=== PATIENT | male | born 1945 | race Caucasian/White ===

== ENCOUNTER 2018-11-26 04:53 | Emergency (ER) | payer BC, MEDICARE ==
--- NOTE | 2018-11-26 05:55 | RADIOLOGY REPORT (SQ) ---
EXAM DESCRIPTION: XR CHEST 2 VIEWS COMPLETED DATE/TME: 11/26/2018 05:24 CLINICAL HISTORY: 73 years, Male, cough COMPARISON: None. NUMBER OF VIEWS: 2 TECHNIQUE: Frontal and lateral views of the chest LIMITATIONS: None. FINDINGS: Cardiomegaly with atheromatous change thoracic aorta. COPD. Minor scarring right lung base. Lungs are otherwise clear. No pneumothorax IMPRESSION: COPD. No acute cardiopulmonary process copyright 2010 [employer]- All Rights Reserved
--- NOTE | 2018-11-26 06:11 | ER Document Report ---
ED General - General Chief Complaint: Productive Cough Stated Complaint: DIFFICULTY BREATHING Time Seen by Provider: 11/26/18 05:23 Primary Care Provider: BRENDNO GOULD DO [NO LOCAL MD] - Follow up in 3-5 days Notes: Patient is a 73-year-old male who presents to the emergency department with a chief complaint of cough.He states that he has had his symptoms for the past 4 days. Admits to yellow coughing up yellow sputum. Denies hemoptysis. He states that he has some shortness of breath and congestion. States that he feels like he has gotten worse over the last 24 hours. He was seen by Zhou hagen afluisana days ago and was given an albuterol inhaler. He has been using it periodically when needed. Patient's past medical history includes arthritis. He only takes glucosamine/chondroitin for medication. Denies any other past medical history. Denies any chest pain, abdominal pain, nausea, vomiting, or any other symptoms. - Related Data Allergies/Adverse Reactions: No Known Allergies Allergy (Verified 03/17/14 11:13) Past Medical History - Social History Smoking Status: Unknown if Ever Smoked Family History: Reviewed & Not Pertinent Patient has suicidal ideation: No Patient has homicidal ideation: No - Past Medical History Cardiac Medical History: Denies: Hx Atrial Fibrillation, Hx Coronary Artery Disease, Hx DVT, Hx Heart Attack, Hx Hypercholesterolemia, Hx Hypertension, Hx Peripheral Vascular Disease Pulmonary Medical History: Reports: Hx COPD Renal/ Medical History: Denies: Hx Peritoneal Dialysis Past Surgical History: Reports: Hx Abdominal Surgery - Hernia repair Review of Systems - Review of Systems Notes: REVIEW OF SYSTEMS: CONSTITUTIONAL : Denies recent illness. Denies recent unintentional weight loss. Denies fever, chills, or sweats. EENT: Denies eye, ear, throat, or mouth pain, discharge, or symptoms. Denies nasal or sinus congestion. CARDIOVASCULAR: Denies chest pain. RESPIRATORY: See HPI GASTROINTESTINAL: Denies nausea, vomiting, and diarrhea. Denies abdominal pain. Denies constipation. GENITOURINARY: Denies difficulty urinating, burning, blood in urine, urgency or frequency. MUSCULOSKELETAL: Denies neck and back pain. Denies joint pain or swelling. SKIN: Denies rash, itchiness, or lesions HEMATOLOGIC : Denies easy bruising or bleeding. LYMPHATIC: Denies swollen, painful, enlarged glands. NEUROLOGICAL: Denies no numbness or tingling denies weakness. Denies headache. Denies altered mental status. Denies alteration in speech. PSYCHIATRIC: Denies stress, anxiety, alteration in sleep patterns, or depression. All other systems reviewed and negative. Physical Exam - Vital signs Vitals: Temp Pulse Resp BP Pulse Ox 97.9 F 72 21 H 153/77 H 94 11/26/18 04:54 11/26/18 04:54 11/26/18 04:54 11/26/18 04:54 11/26/18 04:54 - Notes Notes: PHYSICAL EXAMINATION: GENERAL: Appears well, healthy, well-nourished, no acute distress. HEAD: Normocephalic, atraumatic. EYES: PERRL, conjunctiva normal, all extraocular movements intact, sclera nonicteric ENT: Moist mucous membranes. NECK: Supple, no noticeable swelling, redness, rash. Normal range of motion. LUNGS: Equal breath sounds bilaterally and clear to auscultation. No wheezes rales or rhonchi. CARDIOVASCULAR: S1-S2, regular rate, regular rhythm. Radial pulses 2+, normal. ABDOMEN: Normoactive bowel sounds. Soft, nontender, no guarding, no rebound tenderness, and no masses palpated. EXTREMITIES: Normal strength and range of motion, no pitting or edema. No cyanosis. NEUROLOGICAL: Moves all extremities upon command. Strength 5/5 in all extremities. PSYCH: Normal mood, normal affect. SKIN: Warm, dry. No rash, lesions, ulcerations noted. Normal skin turgor. Course - Re-evaluation Re-evalutation: 11/26/18 Patient's chest x-ray is negative for any acute findings. There is COPD noted on his x-ray. No pneumonia noted. His lung sounds are clear. I have instructed him to continue his albuterol inhaler provided by [facility] every 4-6 hours as needed. He will also be started on prednisone for the next 5 days. He will follow-up with his primary care provider. He is in agreement with this plan. Return precautions were given. Verbal discharge instructions were given to the patient. They verbalized understanding. They are stable for discharge. - Vital Signs Vital signs: Temp Pulse Resp BP Pulse Ox 98.3 F 57 L 20 157/76 H 95 11/26/18 06:31 11/26/18 06:31 11/26/18 06:31 11/26/18 06:31 11/26/18 06:31 Discharge - Discharge Clinical Impression: Cough, Difficulty breathing Condition: Stable Disposition: HOME, SELF-CARE Additional Instructions: You are seen today in the emergency department for a cough and difficulty breathing. Your chest x-ray was normal. Please continue to take your inhaler every 4-6 hours as needed for shortness of breath. You are being started on steroids. Follow-up with your primary care provider in the next 3 to 5 days. If you have worsening symptoms, have difficulty breathing, shortness of breath, or have any symptoms that are worrisome to you, please return to the emergency department. Prescriptions: Prednisone [Deltasone 20 mg Tablet] 3 tab PO DAILY 5 Days #15 tablet Referrals: BRENDON GOULD DO [NO LOCAL MD] - Follow up in 3-5 days
[2018-11-26 06:28] VITALS: BP 157/76
== END 2018-11-26 06:20 | disposition home or self-care (01) ==
LOC: ER 04:53
DX: J44.9 Chronic obstructive pulmonary disease, unspecified (principal); R05 Cough; R06.02 Shortness of breath; Z79.899 Other long term (current) drug therapy
CPT/HCPCS: 71046; 99283

== ENCOUNTER 2020-03-04 19:05 | Emergency (ER) | payer OTHER, MEDICARE ==
--- NOTE | 2020-03-04 19:29 | ER Document Report ---
ED Medical Screen (RME) - General Chief Complaint: Chest Tightness Stated Complaint: CHEST TIGHTNESS Time Seen by Provider: 03/04/20 19:23 Primary Care Provider: MELANIE BUENROSTRO MD [Primary Care Provider] - Follow up as needed - HPI Notes: 03/04/20 19:35 75-year-old male presents to the emergency room for chest tightness that started yesterday afternoon. Patient reports that he feels like he only has chest pain with movement and with taking deep breaths in. Patient states he is having some epigastric tenderness that started yesterday afternoon as well. Patient reports he has been lifting his very old dog more so he is not sure if that he is having musculoskeletal pain or if he is having an actual heart attack. Patient denies any cardiovascular history, states he only has arthritis in his joints and a "like case of COPD". Was a former smoker. Patient reports his father did have an RI, unsure of his mother's history. Patient reports he is able to reproduce his pain in his chest. Denies any trauma or falls. Patient states that it is more of chest tightness than it is chest pain and that is where his concern was. I have greeted and performed a rapid initial assessment of this patient. A comprehensive ED assessment and evaluation of the patient, analysis of test results and completion of the medical decision making process will be conducted by additional ED providers. PHYSICAL EXAMINATION: GENERAL: Well-appearing, well-nourished and in no acute distress. HEAD: Atraumatic, normocephalic. EYES: Pupils equal round extraocular movements intact, conjunctiva are normal. NECK: Normal range of motion CV: s1, s2 regular LUNGS: No respiratory distress abd: epigastric abd pain on palpation - Related Data Allergies/Adverse Reactions: No Known Allergies Allergy (Verified 03/17/14 11:13) Past Medical History - Past Medical History Cardiac Medical History: Denies: Hx Atrial Fibrillation, Hx Coronary Artery Disease, Hx DVT, Hx Heart Attack, Hx Hypercholesterolemia, Hx Hypertension, Hx Peripheral Vascular Disease Pulmonary Medical History: Reports: Hx COPD Renal/ Medical History: Denies: Hx Peritoneal Dialysis Past Surgical History: Reports: Hx Abdominal Surgery - Hernia repair Physical Exam - Vital signs Vitals: Temp Pulse Resp BP Pulse Ox 97.7 F 62 18 144/77 H 95 03/04/20 19:17 03/04/20 19:17 03/04/20 19:17 03/04/20 19:17 03/04/20 19:17 Course - Vital Signs Vital signs: Temp Pulse Resp BP Pulse Ox 97.7 F 62 18 144/77 H 95 03/04/20 19:17 03/04/20 19:17 03/04/20 19:17 03/04/20 19:17 03/04/20 19:17 Doctor's Discharge - Discharge Referrals: MELANIE BUENROSTRO MD [Primary Care Provider] - Follow up as needed
[2020-03-04] MEDS ORDERED: METOCLOPRAMIDE HCL ORAL SOLN 10 MG/10 ML UDCUP PO ONE (19:37)
[2020-03-04] MEDS ORDERED: LIDOCAINE 2% VISCOUS SOLN 15 ML UDCUP PO ONE (19:37)
[2020-03-04] MEDS ORDERED: MAG HYDROX/AL HYDROX/SIMETH SUSP 30 ML UDCUP PO ONE (19:37)
[2020-03-04 20:14] LABS: ABSOLUTE EOSINOPHILS # (AUTO) 0.1 10^3/uL (0.0-0.6); ABSOLUTE LYMPHOCYTES (AUTO) 0.8 10^3/uL (0.5-4.7); ABSOLUTE MONOCYTES (AUTO) 0.8 10^3/uL (0.1-1.4); ABSOLUTE NEUT (AUTO) 5.7 10^3/uL (1.7-8.2); BASOPHILS % (AUTO) 0.6 % (0-2); EOSINOPHILS % (AUTO) 1.3 % (0-6); HEMATOCRIT 44.4 % (37.9-51.0); HEMOGLOBIN 14.7 g/dL (13.5-17.0); LYMPHOCYTES % (AUTO) 10.3 % (13-45); MEAN CORPUSCULAR HEMOGLOBIN 28.6 pg (27.0-33.4); MEAN CORPUSCULAR HGB CONC 33.1 g/dL (32.0-36.0); MEAN CORPUSCULAR VOLUME 87 fl (80-97); MONOCYTES % (AUTO) 10.8 % (3-13); PLATELET COUNT 224 10^3/uL (150-450); RED BLOOD COUNT 5.13 10^6/uL (4.35-5.55); TOTAL CELLS COUNTED % (AUTO) 100 %; WHITE BLOOD COUNT 7.4 10^3/uL (4.0-10.5)
--- NOTE | 2020-03-04 20:15 | RADIOLOGY REPORT (SQ) ---
CLINICAL INDICATION: chest tightness . TECHNIQUE: PA and lateral views were obtained of the chest COMPARISON: November 26, 2018. FINDINGS: The cardiomediastinal silhouette is prominent but stable. Tortuous thoracic aorta.. The lungs are grossly clear. No evidence of effusion or pneumothorax. Chronic parenchymal lung change. Osteoarthritis. . IMPRESSION: No evidence of active intrathoracic disease .
[2020-03-04 20:32] LABS: ALKALINE PHOSPHATASE 72 U/L (38-126); ANION GAP 6 (5-19); ASPARTATE AMINO TRANSFERASE 22 U/L (17-59); BILIRUBIN,DIRECT 0.3 mg/dL (0.0-0.4); BLOOD UREA NITROGEN 17 mg/dL (7-20); CARBON DIOXIDE 26 mmol/L (22-30); CHLORIDE 105 mmol/L (98-107); CREATINE KINASE 126 U/L (55-170); GLUCOSE 85 mg/dL (75-110); POTASSIUM 4.2 mmol/L (3.6-5.0); TOTAL PROTEIN 6.6 g/dL (6.3-8.2)
[2020-03-04 20:44] LABS: CREATINE KINASE MB 4.25 ng/mL (<4.55)
[2020-03-04 20:46] LABS: TROPONIN I < 0.012 ng/mL
--- NOTE | 2020-03-04 20:49 | RADIOLOGY REPORT (SQ) ---
EXAM DESCRIPTION: US ABDOMEN COMPLETED DATE/TME: 03/04/2020 19:37 CLINICAL HISTORY: 75 years, Male, epigastric abd pain COMPARISON: None. FINDINGS: Mild fatty liver without suspicious focal lesions. Normal direction of flow in the portal vein. Mild splenomegaly with associated heterogeneity. Pancreas is unremarkable. Gallbladder demonstrated without stones or wall thickening. Negative Zee sign. No biliary dilatation. Common bile duct of 3 mm. Kidneys are normal in size and echotexture without hydronephrosis or focal lesions. IMPRESSION: 1. Mild fatty liver. Mild splenomegaly. Normal direction of flow in the portal vein. 2. Biliary system, kidneys and pancreas are unremarkable.
[2020-03-05] MEDS ORDERED: ACETAMINOPHEN 325 MG TABLET PO ONE (00:33)
[2020-03-05] MEDS ORDERED: ASPIRIN 81 MG TABLET, CHEWABLE PO ONE (00:33)
--- NOTE | 2020-03-05 00:46 | ER Document Report ---
Entered by ALFONZO MCARTHUR SCRIBE 03/05/20 0044 Acting as scribe for:MARIS RIVERA DO ED General - General Chief Complaint: Chest Tightness Stated Complaint: CHEST TIGHTNESS Time Seen by Provider: 03/04/20 19:23 Primary Care Provider: MELANIE BUENROSTRO MD [Primary Care Provider] - Follow up as needed Mode of Arrival: Ambulatory Information source: Patient Notes: This 75-year-old male patient presents to the emergency department today with complaints of a "tightness across his chest". Patient states he first noticed this pain at 4 PM on 03/03/2020. The pain has remained persistent since onset. Patient mentions that he has a sick Dachshund dog at home that weighs 29 pounds and he has had to lift it up and down the steps recently and he thought he might have pulled a muscle. - Related Data Allergies/Adverse Reactions: No Known Allergies Allergy (Verified 03/17/14 11:13) Past Medical History - Social History Smoking Status: Never Smoker Family History: Reviewed & Not Pertinent - Past Medical History Cardiac Medical History: Denies: Hx Atrial Fibrillation, Hx Coronary Artery Disease, Hx DVT, Hx Heart Attack, Hx Hypercholesterolemia, Hx Hypertension, Hx Peripheral Vascular Disease Pulmonary Medical History: Reports: Hx COPD Renal/ Medical History: Denies: Hx Peritoneal Dialysis Past Surgical History: Reports: Hx Abdominal Surgery - Hernia repair Review of Systems - Review of Systems Constitutional: No symptoms reported EENT: No symptoms reported Cardiovascular: See HPI, Chest pain Respiratory: denies: Short of breath Gastrointestinal: No symptoms reported Genitourinary: No symptoms reported Male Genitourinary: No symptoms reported Musculoskeletal: No symptoms reported Skin: No symptoms reported Hematologic/Lymphatic: No symptoms reported Neurological/Psychological: No symptoms reported -: Yes All other systems reviewed and negative Physical Exam - Vital signs Vitals: Temp Pulse Resp BP Pulse Ox 97.7 F 62 18 144/77 H 95 03/04/20 19:17 03/04/20 19:17 03/04/20 19:17 03/04/20 19:17 03/04/20 19:17 - Notes Notes: Physical Exam: General: Alert, appears well. HEENT: Normocephalic. Atraumatic. PERRL. Extraocular movements intact. Oropharynx clear. Neck: Supple. Non-tender. Respiratory: No respiratory distress. Clear and equal breath sounds bilaterally. Cardiovascular: Regular rate and rhythm. Abdominal: Epigastric abdominal tenderness to palpation. No distension. Normal Bowel Sounds. Back: No gross abnormalities. Extremities: Moves all four extremities. Upper extremities: Normal inspection. Normal ROM. Lower extremities: Normal inspection. No edema. Normal ROM. Neurological: Normal cognition. AAOx4. Normal speech. Psychological: Normal affect. Normal Mood. Skin: Warm. Dry. Normal color. Course - Re-evaluation Re-evalutation: 03/05/20 01:49 MDM 75 year old male who is very fit at baseline - "healthiest pt in my practice" - told by PCP, has had epigastric pain for a day and a half. Tender to palpation. Sono is unremarkable. EKG here is reassuring, and 2 sets of cardiac markers were obtained which likewise are reassuring. Discussed this with him and discussed follow up. He expressed understanding. - Vital Signs Vital signs: Temp Pulse Resp BP Pulse Ox 98.3 F 52 L 17 139/81 H 99 03/04/20 23:19 03/04/20 23:19 03/05/20 00:44 03/05/20 00:44 03/05/20 00:44 - Laboratory Result Diagrams: 03/04/20 19:50 03/04/20 19:50 Laboratory results interpreted by me: 03/04/20 19:50 RDW 15.0 H Lymph % (Auto) 10.3 L - Diagnostic Test Radiology reviewed: Reports reviewed - EKG Interpretation by Me EKG shows normal: Sinus rhythm - NSR Left [place] [address] elevation or depression my interpretation. Rate: Normal Rhythm: NSR [place]/QRS: LAHB/LAFB Discharge - Discharge Clinical Impression: Epigastric pain Condition: Stable Disposition: HOME, SELF-CARE Instructions: Abdominal Pain ([facility]) Additional Instructions: Take tylenol for pain and if that is not helpful you have bit stronger medicine sent to the pharmacy - [facility]. Call your doctor in the morning to get scheduled for follow up. Please return here for chest pain, shortness of breath or other problems or concerns. Take 20 mg of pepcid - this medicine is over the counter twice a day for the next 10 days. Prescriptions: Tramadol HCl [Ultram] 50 mg PO TID #10 tablet Referrals: MELANIE BUENROSTRO MD [Primary Care Provider] - Follow up as needed I personally performed the services described in the documentation, reviewed and edited the documentation which was dictated to the scribe in my presence, and it accurately records my words and actions.
[2020-03-05 02:25] VITALS: BP 122/74
--- NOTE | 2020-03-05 10:24 | EKG REPORT ---
SEVERITY:- ABNORMAL ECG - SINUS RHYTHM MULTIPLE ATRIAL PREMATURE COMPLEXES LEFT ANTERIOR FASCICULAR BLOCK : Confirmed by: Dali Conrad MD 05-Mar-2020 10:23:53
== END 2020-03-05 02:25 | disposition home or self-care (01) ==
LOC: ER 19:05
DX: R10.13 Epigastric pain (principal); R10.816 Epigastric abdominal tenderness; J44.9 Chronic obstructive pulmonary disease, unspecified; R07.89 Other chest pain; K76.0 Fatty (change of) liver, not elsewhere classified; I44.4 Left anterior fascicular block
CPT/HCPCS: 93005; 99285; 36415; 82553; 82550; 85025; 80053; 84484; 71046; 76700; 93010; J3490